=== PATIENT | female | born 1980 | race African-American/Black ===

== ENCOUNTER 2017-02-07 15:34 | Emergency (ER) | payer SELFPAY ==
[2016-04-21 03:05] VITALS: BP 131/87
[2017-02-07 16:02] LABS: APPEARANCE,URINE Clear (CLEAR); COLOR,URINE Yellow (YELLOW); OCCULT BLOOD,URINE Trace-intact (NEGATIVE); PH URINE 5.5 (5.0 - 8.0); UROBILINOGEN URINE 0.2 Eu (0.2-1.0)
[2017-02-07 16:11] LABS: AMORPHOUS SEDIMENT,UR FEW (NEGATIVE)
--- NOTE | 2017-02-07 17:11 | ED Physician Documentation ---
General Adult - HPI Stated Complaint: tail bone pain from a fall Chief Complaint: General Adult Additional Information: Landed on the floor yesterday when the couch she was sitting on rolled as she stood. Landed in a sitting position. Thought she was fine. Today has tail bone pain and pain when she urinates. No numbness, tingling, loss of bowel or bladder control. - ROS CONST: no problems - PAST HX Past History: other (UTI's, last one a year ago) Surgeries/Procedures: BTL Allergies/Adverse Reactions: Allergies Allergy/AdvReac Type Severity Reaction Status Date / Time No Known Allergies Allergy Verified 04/20/16 23:19 Home Medications: Ambulatory Orders Medication Instructions Recorded Cyclobenzaprine HCl [Flexeril] 10 mg PO HS #16 tablet 02/07/17 Nitrofurantoin Monohyd/M-Cryst 100 mg PO CMEAL #14 capsule 02/07/17 [Macrobid] Tramadol HCl [Ultram] 50 mg PO Q6H PRN #20 tablet 02/07/17 - SOCIAL HX Smoking History: non-smoker - FAMILY HX Family History: No - VITAL SIGNS Vital Signs: Vital Signs Temp Pulse Resp BP Pulse Ox 131/87 04/21/16 00:25 - REVIEWED ASSESSMENTS Nursing Assessment Reviewed: Yes Vitals Reviewed: Yes Progress - Progress Progress: Sacrum and coccyx total 4 views . Clinical history: Low back pain, tailbone pain , fell yesterday. No visible fractures or other appreciable abnormality within the sacrum and coccyx. Impression: Normal sacrum and coccyx Electronically signed on February 07, 2017 5:00:07 PM CDT by: Jamal Colvin Lumbar spine, total 3 views Clinical history: Injured the back after fall yesterday Muscle spasm with small marginal spurs. Disc spaces are well maintained. No fractures, dislocation or bone destruction. good alignment of the lumbar spine. Impression: Muscle spasm with marginal spurs No fractures Electronically signed on February 07, 2017 5:01:20 PM CDT by: Jamal Colvin ED Results Lab/Radiology - Lab Results Lab Results: Lab Results 02/07/17 02/07/17 16:10 16:00 Urine Color Yellow (YELLOW) Urine Appearance Clear (CLEAR) Urine pH 5.5 (5.0 - 8.0) Ur Specific [place] 1.025 (1.010-1.030) Urine Protein Negative mg/dL mg/dL (NEGATIVE) Urine Ketones Negative mg/dL mg/dL (NEGATIVE) Urine Occult Blood Trace-intact (NEGATIVE) Urine Nitrite Negative (NEGATIVE) Urine Bilirubin Negative (NEGATIVE) Urine Urobilinogen 0.2 Eu Eu (0.2-1.0) Ur Leukocyte Esterase Trace (NEGATIVE) Urine RBC 0-2 (0-2 HPF) Urine WBC 0-2 (0-5 HPF) Ur Squamous Epith Cells Few (NEG-FEW) Amorphous Sediment Few H (NEGATIVE) Urine Glucose Negative mg/dL mg/dL (NEGATIVE) Urine HCG, Qual Negative (NEGATIVE) - Orders Orders: ED Orders Category Date Time Status L SPINE 2 OR 3 VIEWS [RAD] Stat Exams 02/07/17 Taken SACRUM & COCCYX 2 VIEW+ [RAD] Stat Exams 02/07/17 Taken URINALYSIS Routine Lab 02/07/17 16:00 Completed URINE HCG [URINE HCG] Stat Lab 02/07/17 16:10 Completed General Adult Physical Exam - PHYSICAL EXAM GENERAL APPEARANCE: mild distress EENT: eye inspection normal, ENT inspection normal NECK: normal inspection, supple RESPIRATORY: no resp distress, breath sounds normal CVS: reg rate & rhythm, heart sounds normal, no murmur RECTAL: deferred BACK: normal inspection, other (no bruising. ? lumbar paraspinous spasm chris) SKIN: warm/dry, normal color EXTREMITIES: no evidence of injury, other (SLR pos at > 90 degrees, R>L.) NEURO: CN's nml as tested, motor nml, sensation nml, other (can dorsi and plantar flex toes against resistance) Discharge Clincal Impression: Lumbar spine strain Qualifiers: Encounter type: initial encounter Qualified Code(s): S39.012A - Strain of muscle, fascia and tendon of lower back, initial encounter Prescriptions: Cyclobenzaprine HCl [Flexeril] 10 mg PO HS #16 tablet Nitrofurantoin Monohyd/M-Cryst [Macrobid] 100 mg PO CMEAL #14 capsule Tramadol HCl [Ultram] 50 mg PO Q6H PRN #20 tablet PRN Reason: Pain Referrals: Grace Blake MD [Primary Care Provider] - 2 Days Home Medications: Ambulatory Orders Cyclobenzaprine HCl [Flexeril] 10 mg PO HS #16 tablet 02/07/17 Nitrofurantoin Monohyd/M-Cryst [Macrobid] 100 mg PO CMEAL #14 capsule 02/07/17 Tramadol HCl [Ultram] 50 mg PO Q6H PRN #20 tablet 02/07/17 Condition: Good Disposition: 01 HOME, SELF-CARE Decision to Admit: NO Decision Time: 17:12
--- NOTE | 2017-02-07 22:55 | Diagnostic Imaging Report ---
GALA PICKARD [facility] [address] [facility] [address] [place] [address]. [id number] Report Submission Date: February 07, 2017 5:01:20 PM CDT Patient Study Name: TENA COLÓN Date: February 07, 2017 4:16:08 PM CDT Modality Type: CR Gender: F Description: SPINE : 78 Institution: [facility] Physician: GALA PICKARD Lumbar spine, total 3 views Clinical history: Injured the back after fall yesterday Muscle spasm with small marginal spurs. Disc spaces are well maintained. No fractures, dislocation or bone destruction. good alignment of the lumbar spine. Impression: Muscle spasm with marginal spurs No fractures Electronically signed on February 07, 2017 5:01:20 PM CDT by: Jamal CHRISTENSEN
--- NOTE | 2017-02-07 22:55 | Diagnostic Imaging Report ---
GALA PICKARD [facility] [address] [facility] [address] [address] Report Submission Date: February 07, 2017 5:00:07 PM CDT Patient Study Name: TENA COLÓN Date: February 07, 2017 4:18:35 PM CDT Modality Type: CR Gender: F Description: SPINE : 78 Institution: [facility] Physician: GALA PICKARD Sacrum and coccyx total 4 views . Clinical history: Low back pain, tailbone pain , fell yesterday. No visible fractures or other appreciable abnormality within the sacrum and coccyx. Impression: Normal sacrum and coccyx Electronically signed on February 07, 2017 5:00:07 PM CDT by: Jamal CHRISTENSEN
== END 2017-02-07 17:30 | disposition home or self-care (01) ==
LOC: ED 15:34
DX: S39.012A Strain of muscle, fascia and tendon of lower back, initial encounter (principal); W19.XXXA Unspecified fall, initial encounter; Y93.9 Activity, unspecified; Y99.9 Unspecified external cause status
CPT/HCPCS: 72100; 72220; 81002; 81025; 99283

== ENCOUNTER 2017-11-22 08:30 | Emergency (ER) | payer SELFPAY ==
--- NOTE | 2017-11-22 09:08 | ED Physician Documentation ---
Dyspnea - HISTORIAN Historian: patient - HPI Stated Complaint: Shortness of Breath Chief Complaint: Dyspnea Additional Information: woke up fine this am - while dressing has sig sob and noted rlq thoracic vbakd pain which inereferes w/ deep breath. pt alert [id number] rm air. denies other c/o Onset: other (thia M) Duration: better Initiating Event: denies: upper respiratory illness, out of meds, sports, exercise Severity: moderate Exacerbated By: other (DEEP BREATH). denies: coughing Associated Symptoms: none - ROS CONST: no problems EYES/ENT: denies: problems with vision GI/: none NEURO/PSYCH: denies: headache MS/SKIN/LYMPH: none - PAST HX Lung Disease: none Cardiac Disease: none PE Risk Factors: none Surgeries/Procedures: cholecystectomy (btl) Other History: none Immunizations: UTD Allergies/Adverse Reactions: Allergies Allergy/AdvReac Type Severity Reaction Status Date / Time No Known Allergies Allergy Verified 11/22/17 08:42 - SOCIAL HX Smoking History: cigarettes Alcohol Use: none Drug Use: marijuana (occnl) - FAMILY HX Family History: no significant history - VITAL SIGNS Vital Signs: Vital Signs Temp Pulse Resp BP Pulse Ox 80 20 146/95 100 11/22/17 08:30 11/22/17 08:30 11/22/17 08:30 11/22/17 08:30 - REVIEWED ASSESSMENTS Nursing Assessment Reviewed: Yes Vitals Reviewed: Yes ED Results Lab/Radiology - Radiology Radiology Impressions: cxt=wnl - Orders Orders: ED Orders Category Date Time Status CHEST 2VIEW [RAD] Stat Exams 11/22/17 Ordered Dyspnea Physical Exam - EXAM General Appearance: mild distress EENT: eye inspection normal Neck: nml inspection (no carotid bruitt) CVS: reg. rate & rhythm, no murmur Abdomen: non-tender, no distention Skin: color nml. No: no rash, cyanosis, diaphoresis, pallor Extremities: non-tender, normal range of motion Neuro/Psych: oriented x3, motor nml, sensation nml, mood/affect nml Discharge Clincal Impression: dyspnea d.t. costochondritis RT LO back Referrals: Grace Blake MD [STAFF PHYSICIAN] - 2 Days Comments: pt to take IBU 600 tid w/food or milk Condition: Good Disposition: 01 HOME, SELF-CARE Decision to Admit: NO Decision Time: 09:38
[2017-11-22 09:38] VITALS: BP 130/68
--- NOTE | 2017-11-22 09:40 | Diagnostic Imaging Report ---
EUSEBIO SMALLS [facility] [address] [facility].[address] [address] Report Submission Date: Nov 22, 2017 9:31:45 AM CONTACT LENS BLOCKER AND CUTTER Patient Study Name: TENA COLÓN Date: Nov 22, 2017 9:10:15 AM CONTACT L[employer] C[employer]TER Modality Type: CR Gender: F Description: CHEST : 78 Institution: [facility] Physician: EUSEBIO SMALLS Examination: PA and lateral chest. History: CXR, SOA AND POSTERIOR CHEST PAIN SINCE THIS MORNING, SMOKER (Hx) / SHORTNESS OF BREATH (DICOM Hx) / SHORTNESS OF BREATH (Pt comments) Comparison exam: None provided. Findings: PA lateral chest demonstrate a normal cardiac and mediastinal silhouette. Mildly tortuous aorta. No focal infiltrate. No blunting of the costophrenic margins. Osseous structures are appropriate for age. Impression: No acute pulmonary process. Electronically signed on Nov 22, 2017 9:31:45 AM CONTACT LENS BLOCKER AND CUTTER by: Daniel CHRISTENSEN
== END 2017-11-22 09:36 | disposition home or self-care (01) ==
LOC: ED 08:30
DX: R06.00 Dyspnea, unspecified (principal); M94.0 Chondrocostal junction syndrome [Tietze]
CPT/HCPCS: 71046; 99282

== ENCOUNTER 2018-12-14 17:42 | Observation (INO) | payer MEDICAID, OTHER ==
[2018-12-14] MEDS ORDERED: KETOROLAC TROMETHAMINE 30 MG/1ML VIAL IV ONE (18:11)
[2018-12-14] MEDS ORDERED: 0.9 % SODIUM CHLORIDE 1,000 ML IV ONE ×2 (18:11→19:15)
--- NOTE | 2018-12-14 18:11 | ED Physician Documentation ---
General Adult - HISTORIAN Historian: patient - HPI Stated Complaint: fever, cough and headache since Saturday Chief Complaint: Fever Onset: days ago (3) Timing: still present Severity: mild Further Comments: yes (she states Saturday she started with cough, fever and headache (she states she has HX: migraines) She states she has a cough, she has pain when she coughs head and chest. She has tried OTC meds with little relief from symptoms. No sick contacts that she reports) - ROS CONST: fever, weakness EYES/ENT: nasal drainage, nasal congestion CVS/RESP: shortness of breath, cough GI/: none NEURO/PSYCH: headache - PAST HX Past History: other (migraines ) Surgeries/Procedures: cholecystectomy Immunizations: UTD Allergies/Adverse Reactions: Allergies Allergy/AdvReac Type Severity Reaction Status Date / Time No Known Allergies Allergy Verified 12/14/18 18:17 - SOCIAL HX Smoking History: cigarettes Alcohol Use: none Drug Use: none - FAMILY HX Family History: No - VITAL SIGNS Vital Signs: Vital Signs Temp Pulse Resp BP Pulse Ox 130/68 11/22/17 09:36 - REVIEWED ASSESSMENTS Nursing Assessment Reviewed: Yes Vitals Reviewed: Yes Progress - Progress Progress: 1940: discussed current results and admission to monitor lab. She is agreeable. States headache remains painful. Other med might have helped "Some" DG ED Results Lab/Radiology - Radiology Radiology Impressions: HISTORY: 38-year-old female with cough and fever. COMPARISON: None available. TECHNIQUE: 2 views of the chest were performed. FINDINGS: No pneumothorax, consolidative infiltrates, pleural effusions, or pulmonary edema. The heart is not enlarged. There is mild thoracic degenerative disc disease. There is slight thoracic levoscoliosis, possibly positional in nature. IMPRESSION: No acute intrathoracic process. Electronically signed on Dec 14, 2018 6:49:50 PM CDT by: Ayo Sloan General Adult Physical Exam - PHYSICAL EXAM GENERAL APPEARANCE: no distress EENT: eye inspection normal, pharynx normal, no signs of dehydration, TM's nml NECK: normal inspection RESPIRATORY: no resp distress, chest non-tender CVS: reg rate & rhythm, heart sounds normal ABDOMEN: soft, no distension BACK: normal inspection SKIN: warm/dry, normal color EXTREMITIES: non-tender NEURO: oriented X3 Discharge Clincal Impression: Influenza A, Neutropenia associated with infectious disease Condition: Fair Disposition: ADMITTED INPATIENT Decision to Admit: [id number] Date of Decison to Admit: 12/14/18 Decision Time: 19:45
--- NOTE | 2018-12-14 18:52 | Diagnostic Imaging Report ---
PRITESH SANCHEZ [facility] [address] [facility] [address] [place], [place]. [address] Report Submission Date: Dec 14, 2018 6:49:50 PM CDT Patient Study Name: TENA COLÓN Date: Dec 14, 2018 6:15:54 PM CDT Modality Type: DX Gender: F Description: CHEST 2VIEW : 78 Institution: [facility] Physician: PRITESH SANCHEZ HISTORY: 38-year-old female with cough and fever. COMPARISON: None available. TECHNIQUE: 2 views of the chest were performed. FINDINGS: No pneumothorax, consolidative infiltrates, pleural effusions, or pulmonary edema. The heart is not enlarged. There is mild thoracic degenerative disc disease. There is slight thoracic levoscoliosis, possibly positional in nature. IMPRESSION: No acute intrathoracic process. Electronically signed on Dec 14, 2018 6:49:50 PM CDT by: Ayo CHRISTENSEN
[2018-12-14 18:53] LABS: MEAN CORPUSCULAR HEMOGLOBIN 29.5 pg (28.0-34.0)
[2018-12-14 19:05] LABS: MONOCYTES % 10 % (0-11); SEGMENTED NEUTROPHILS % 32 % (39-79)
[2018-12-14 19:06] LABS: eGFR (Non-African) > 60
[2018-12-14] MEDS ORDERED: fentaNYL CITRATE/PF 100 MCG/2 ML INJ. IVP ONE (19:43)
[2018-12-14] MEDS: OSELTAMIVIR PHOSPHATE 75 MG CAPSULE PO SCH (19:50)
[2018-12-14] MEDS ORDERED: IBUPROFEN 400 MG TABLET PO PRN (19:53)
[2018-12-14 20:52] VITALS: BMI 39.1
[2018-12-14] MEDS: 0.9 % SODIUM CHLORIDE 1,000 ML IV SCH (21:05)
[2018-12-14] MEDS: ACETAMINOPHEN 325 MG TABLET PO PRN (23:53)
[2018-12-15] MEDS: 0.9 % SODIUM CHLORIDE 1,000 ML IV SCH (06:12)
[2018-12-15 07:23] LABS: BASOPHILS % 0.3 (0.0-1.5); MEAN CORPUSCULAR HEMOGLOBIN 29.8 pg (28.0-34.0); MONOCYTES % 12.3 % (0.0-11.0); NEUTROPHILS # 0.5 # k/uL (1.4-7.7)
[2018-12-15] MEDS: OSELTAMIVIR PHOSPHATE 75 MG CAPSULE PO SCH (09:19)
[2018-12-15] MEDS: ACETAMINOPHEN 325 MG TABLET PO PRN (10:15)
[2018-12-15 13:35] VITALS: BP 130/83
--- NOTE | 2018-12-15 21:06 | Discharge Summary ---
Discharge Summary - Discharge Sumary History of Present Illness: Patient admitted through the ER with influenza A and WBC count of 1.4. Condition at Discharge: Stable Home Medications: Ambulatory Orders Medication Instructions Recorded Ondansetron HCl Rapdis [Zofran Odt] 4 mg PO Q6 PRN #30 tab 12/15/18 Oseltamivir Phosphate [Tamiflu] 75 mg PO BID #8 capsule 12/15/18 Consultations this Visit: None Procedures this Visit: None Allergies/Adverse Reactions: Allergies Allergy/AdvReac Type Severity Reaction Status Date / Time No Known Allergies Allergy Verified 12/14/18 18:17 Discharge Summary: Patient states she feels better today. Reviewed discharge instructions - questions answered. verbalized understanding of instructions. HGB down to 10 - patient has received 2L NC; will recheck on Saturday. - Final Diagnosis (1) Influenza A Problems: Home with Tamiflu (2) Neutropenia associated with infectious disease Problems: WBC count 1.6 today; redraw lab on Saturday and follow up with PCP.
== END 2018-12-15 15:25 | disposition home or self-care (01) ==
LOC: ED 17:42 → SOUTH 19:48
PROVIDERS: ADMIT Nurse Practitioner Family; ATTEND Emergency Medicine
DX: J11.1 Influenza due to unidentified influenza virus with other respiratory manifestations (principal); D70.9 Neutropenia, unspecified
CPT/HCPCS: 71046; 80053; 85025; 87040; 96365; 96375; 99284; G0378; J1885; J3010; J7030; 96366; 99217; S1016